=== PATIENT | male | born 1985 | race Caucasian/White ===

== ENCOUNTER 2018-05-16 00:28 | Emergency (ER) | payer MEDICARE, OTHER ==
[~2018-05-16 00:28] MED LIST: HYDR-4309 PO; LOR5/325 PO; OMEP10CA38 PO; ONDA4TAB PO; PANT40TA65 PO; PROM-110 PO; SUCR1TAB85 PO
--- NOTE | 2018-05-16 00:36 | ER Report ---
History and Physical Time Seen By MD: 00:37 Hx. of Stated Complaint: left leg swelling and pain HPI/ROS CHIEF COMPLAINT: Left leg swelling and pain HISTORY OF PRESENT ILLNESS: 33 year-old male presents with left leg swelling and pain for 2-3 days. He notes some erythematous changes to the skin on the medial aspect of his calf muscle and morales. There is very much warmth noted. Patient recalls no specific trauma. Patient states he was doing yoga when he felt a muscle pull in his calf muscle. Allergies: Coded Allergies: Penicillins (Verified Allergy, Severe, THROAT SWELLS, 05/16/18) Home Meds Active Scripts Sulfamethoxazole/Trimet 800-160 Mg Tab (BACTRIM DS TABLET) 1 Each Tablet, 1 TAB PO Q12H for infection, #14 Prov:MERLE KEYS DO 05/16/18 Discontinued Reported Medications Omeprazole (PRILOSEC) 10 Mg Capsule.dr, 10 MG PO DAILY 06/24/15 Discontinued Scripts Ondansetron (ZOFRAN ODT) 4 Mg Tab.rapdis, 4 MG PO Q6H PRN for NAUSEA/VOMITING, #20 TAB.ALICIA 0 Refills Prov:VIDA TORIBIO MD 12/10/15 Hydrocodone Bit/Acetaminophen (HYDROCODON-ACETAMINOPHEN 5-325) 1 Each Tablet, 1 EACH PO Q4-6H PRN for PAIN, #20 TAB 0 Refills Prov:VIDA TORIBIO MD 12/10/15 Pantoprazole Sodium (PANTOPRAZOLE SODIUM) 40 Mg Tablet.dr, 40 MG PO QDAY, #30 TAB.SR 0 Refills Prov:VIDA TORIBIO MD 12/10/15 Sucralfate (CARAFATE) 1 Gm Tablet, 1 GM PO QID, #120 TAB 0 Refills Prov:VIDA TORIBIO MD 12/10/15 Reviewed Nurses Notes: Yes Old Medical Records Reviewed: Yes Hx Smoking: No Smoking Status: Former Smoker Exposure to Second Hand Smoke?: No Hx Substance Use Disorder: No Hx Alcohol Use: Yes (OCC) Constitutional Vital Sign - Last 24 Hours 05/16/18 05/16/18 05/16/18 05/16/18 00:32 00:33 00:45 00:58 Temp 98.2 Pulse 77 88 78 Resp 12 13 B/P (MAP) 183/140 (154) 183/140 168/110 (129) Pulse Ox 94 96 94 O2 Delivery Room Air 05/16/18 05/16/18 05/16/18 05/16/18 01:00 01:05 01:30 01:35 Pulse 77 82 Resp 14 B/P (MAP) 139/100 (113) 136/94 (108) Pulse Ox 92 93 05/16/18 02:00 B/P (MAP) 134/95 (108) Physical Exam General appearance: Alert no distress. Respiratory: Chest is non tender, lungs are clear to auscultation. Cardiac: Regular rate and rhythm Extremities: [ ] [DIFFERENTIAL DIAGNOSIS: After history and physical exam differential diagnosis was considered for] [ ] Medical Decision Making EKG/Imaging Imaging Results: Ultrasound of the lower extremity was obtained. The results of the study are no evidence of DVT. The study was read by the radiologist. I viewed the images myself on the PACS system. ED Course/Re-evaluation ED Course Patient was minute to an examination room. H&P was done. The differential diagnoses was considered. On clinical examination. Patient's left lower extremity shows significant edema. There is erythema to the skin. There is warmth to touch. There is no Homans sign. There is calf tenderness with compression. An ultrasound was performed which was negative for evidence of DVT. Patient's advised to conservative treatment plan. Be covered with sulfa trimethoprim for infection. He has a previous penicillin allergy. Agents. Advised ibuprofen 60 mg 3 times daily. He is advised to wear compression stockings. Follow up with primary care if unimproved in 3-5 days. Decision to Disposition Date: May 16, 2018 Decision to Disposition Time: 01:45 Depart Departure Latest Vital Signs Vital Signs Date Time Temp Pulse Resp B/P (MAP) Pulse Ox O2 Delivery O2 Flow Rate FiO2 05/16/18 02:00 134/95 (108) 05/16/18 01:35 82 93 05/16/18 01:00 14 05/16/18 00:33 98.2 Room Air Impression: Primary Impression: Left leg swelling Additional Impression: Cellulitis of left lower extremity Condition: Improved Disposition: HOME OR SELF-CARE Referrals: VANESA SANCHEZ MD, FARRUKH MD New Scripts Sulfamethoxazole/Trimet 800-160 Mg Tab (BACTRIM DS TABLET) 1 Each Tablet 1 TAB PO Q12H for infection, #14 Prov: MERLE KEYS DO 05/16/18 Patient Instructions: Cellulitis (ED), Leg Edema (ED) Additional Instructions: Take ibuprofen 200 mg 3 tablets 3 times a day with food Apply heating pad to your leg Wear compression stockings Take one 325 mg aspirin a day Follow-up with primary care if unimproved in 3-5 days. Problem Qualifiers MERLE KEYS DO May 16, 2018 00:36
[2018-05-16] MEDS ORDERED: SULF-198 PO (01:50)
--- NOTE | 2018-05-16 01:54 | RADIOLOGY IMAGING REPORT ---
FACILITY: [facility] - [place] PATIENT NAME: Miles Pettit : 1985 MR: [id number] V: [id number] EXAM DATE: ORDERING PHYSICIAN: MERLE KEYS TECHNOLOGIST: Location: [facility] [place] Patient: Miles Pettit : 1985 Visit/Account:[id number] Date of Sevice: 05/16/2018 VENOUS DOPP LOW LEFT EXTREMITY HISTORY: Leg swelling for 2 days. COMPARISON STUDIES: None. FINDINGS: Grayscale compression, duplex and color Doppler interrogation of the left lower extremity deep veins from common femoral vein to proximal calf was performed. The greater saphenous vein in the ipsilatera l proximal thigh was evaluated using similar technique. Imaging of the contralateral common femoral v ein was obtained for comparison. Left lower extremity: Common femoral vein: Normal. Deep femoral vein: Normal. Femoral vein: Normal. Popliteal vein: Normal. Visualized deep calf veins: Normal. Greater saphenous vein in the proximal thigh: Normal. Popliteal fossa: Normal. Right common femoral vein: Normal. IMPRESSION: 1. There is no deep venous thrombosis of the left lower extremity. Report Dictated By: Ema Mendoza at 05/16/2018 1:49 AM Report E-Signed By: Ema Mendoza at 05/16/2018 1:50 AM WSN:[id number]
[2018-05-16] MEDS ORDERED: TRIMETH/SULFA DS 160-800MG TAB PO ONE (01:55)
[2018-05-16 02:00] VITALS: BP 134/95
== END 2018-05-16 02:24 | disposition home or self-care (01) ==
LOC: ER 00:47
DX: L03.116 Cellulitis of left lower limb (principal)
CPT/HCPCS: 99284

== ENCOUNTER → 2018-05-17 | Outpatient (CLI) | payer OTHER ==
[~2018-05-17] MED LIST changes: +SULF-198 PO
--- NOTE | 2018-05-17 17:16 | RADIOLOGY IMAGING REPORT ---
FACILITY: [facility] PATIENT NAME: Miles Pettit : 1985 MR: [id number] V: [id number] EXAM DATE: ORDERING PHYSICIAN: SHAWN LITTLE TECHNOLOGIST: Location: [facility] Patient: Miles Pettit : 1985 Visit/Account:[id number] Date of Sevice: 05/17/2018 EXAMINATION: Scrotal ultrasound with duplex Doppler evaluation HISTORY: Right testicular swelling. Cellulitis. On antibiotics. COMPARISON: None. FINDINGS: Testes: Normal in size. A few punctate echogenic foci in the testes suggestive of microcalcifications . The right testis measures 4.1 x 2.3 x 3.6 cm and the left testis measures 4.0 x 2.2 x 2.4 cm. There is increased vascularity in the left testis. Low resistance arterial blood flow within each testicle by duplex Doppler ultrasound. Venous blood fl ow is also documented. Epididymides: The right epididymal head is prominently enlarged, measuring 3.5 cm compared with the c ontralateral side which measures 1.3 cm. There is hypervascularity of the right epididymis. There is a 4 mm cyst in the left epididymal head. Hydrocele: There is a small right hydrocele IMPRESSION: The right epididymal head is enlarged and hypervascular and there is a small right hydrocele. These f indings are suggestive of epididymitis. There is increased vascularity of the left testis suggestive of possible orchitis. A few microcalcifications in the testes. Report Dictated By: Onur Delgado MD at 05/17/2018 4:52 PM Report E-Signed By: Onur Delgado MD at 05/17/2018 5:13 PM WSN:[id number]
== END ==
LOC: US 15:39
PROVIDERS: ATTEND Nurse Practitioner Family
DX: N50.89 Other specified disorders of the male genital organs (principal)
CPT/HCPCS: 76870